=== PATIENT | female | born 1975 | race Caucasian/White ===

== ENCOUNTER 2018-07-13 01:06 | Emergency (ER) | payer OTHER ==
[2018-07-13 01:06] VITALS: BMI 27.3
--- NOTE | 2018-07-13 01:17 | ED PDOC ---
Arrival/HPI - General Time Seen by Provider: 07/13/18 01:09 Historian: Patient - History of Present Illness Narrative History of Present Illness (Text): 07/13/18 01:17 Vivian Rivera is a 43 year old female, whose past medical history includes depression, bipolar disorder, anemia, and hypothyroidism, who presents to the Emergency department brought in by EMS accompanied by relative for bizarre behavior. Relative states patient has been non-compliant with her medication and has been acting bizarrely. On arrival to Emergency department, patient became agitated and was placed in 4 point restraints. When questioned, patient is rambling, stating she is the [place] Nohemy and nobody believes her. Patient denies any somatic complaints. Symptom Onset: Gradual Symptom Course: Unchanged Activities at Onset: Light Context: Home Past Medical History - Provider Review Nursing Documentation Reviewed: Yes - Infectious Disease Hx of Infectious Diseases: None - Reproductive Currently : No - Cardiac Hx Cardiac Disorders: No - Pulmonary Hx Respiratory Disorders: No - Neurological Hx Neurological Disorder: No - HEENT Hx HEENT Disorder: No Other/Comment: USES NEARSIGHTED EYEGLASSES - Renal Hx Renal Disorder: No - Endocrine/Metabolic Hx Hypothyroidism: Yes - Hematological/Oncological Hx Anemia: Yes - Integumentary Hx Dermatological Disorder: No - Musculoskeletal/Rheumatological Hx Musculoskeletal Disorders: No Hx Falls: No - Gastrointestinal Hx Gastrointestinal Disorders: No - Genitourinary/Gynecological Hx Genitourinary Disorders: No - Psychiatric Hx Substance Use: No - Surgical History Hx Hysterectomy: Yes Hx Thyroidectomy: Yes Hx Tubal Ligation: Yes (1996) - Anesthesia Hx Anesthesia: Yes Hx Anesthesia Reactions: No Hx Malignant Hyperthermia: No - Suicidal Assessment Feels Threatened In Home Enviroment: No Family/Social History - Physician Review Nursing Documentation Reviewed: Yes Family/Social History: Unknown Family HX Smoking Status: Never Smoked Hx Alcohol Use: No Hx Substance Use: No Allergies/Home Meds Allergies/Adverse Reactions: Allergies No Known Allergies Allergy (Verified 02/07/17 18:34) Home Medications: Home Meds Medication Instructions Recorded Confirmed Aripiprazole [Abilify] 10 mg PO DAILY 12/05/14 07/13/18 Review of Systems - Physician Review All systems were reviewed & negative as marked: Yes - Review of Systems Constitutional: Normal. absent: Fevers Eyes: Normal ENT: Normal Respiratory: Normal. absent: SOB, Cough Cardiovascular: Normal. absent: Chest Pain Gastrointestinal: Normal. absent: Abdominal Pain, Diarrhea, Nausea, Vomiting Genitourinary Female: Normal. absent: Dysuria, Frequency, Hematuria, Urine Output Changes Musculoskeletal: Normal. absent: Back Pain, Neck Pain Skin: Normal. absent: Rash Neurological: Normal. absent: Headache, Dizziness Endocrine: Normal Hemo/Lymphatic: Normal Psychiatric: Other (+bizarre behavior) Physical Exam Vital Signs Reviewed: Yes Temperature: Afebrile Blood Pressure: Normal Pulse: Regular Respiratory Rate: Normal Appearance: Positive for: Well-Appearing, Non-Toxic, Comfortable Pain Distress: None Mental Status: Positive for: Alert and Oriented X 3 - Systems Exam Head: Present: Atraumatic, Normocephalic Pupils: Present: PERRL Extroacular Muscles: Present: EOMI Conjunctiva: Present: Normal Mouth: Present: Moist Mucous Membranes Neck: Present: Normal Range of Motion Respiratory/Chest: Present: Clear to Auscultation, Good Air Exchange. No: Respiratory Distress, Accessory Muscle Use Cardiovascular: Present: Regular Rate and Rhythm, Normal S1, S2. No: Murmurs Abdomen: No: Tenderness, Distention, Peritoneal Signs Back: Present: Normal Inspection Upper Extremity: Present: Normal Inspection. No: Cyanosis, Edema Lower Extremity: Present: Normal Inspection. No: Edema Neurological: Present: GCS=15, CN II-XII Intact, Speech Normal Skin: Present: Warm, Dry, Normal Color. No: Rashes Psychiatric: Present: Alert, Oriented x 3, Delusional Medical Decision Making ED Course and Treatment: 07/13/18 01:17 Impression: 43 year old female brought in for bizarre behavior. Plan: -- EKG -- Chest X-ray -- Labs, alcohol level -- Urinalysis, urine drug screen -- Reassess and disposition Prior Visits: Notes and results from previous visits were reviewed. Progress Notes: Reviewed EKG, sinus tachycardia at [address] bpm[address] Non-specific ST/T wave changes. - EKG Interpretation Interpreted by ED Physician: Yes Type: 12 lead EKG - Transfer of Care Patient signed out to Dr:: cecilio muñoz awaiting lisa screeners - Scribe Statement The provider has reviewed the documentation as recorded by the Santosh Fairchild Provider Scribe Attestation: All medical record entries made by the Scribe were at my direction and personally dictated by me. I have reviewed the chart and agree that the record accurately reflects my personal performance of the history, physical exam, medical decision making, and the department course for this patient. I have also personally directed, reviewed, and agree with the discharge instructions and disposition. Disposition/Present on Arrival - Present on Arrival Any Indicators Present on Arrival: No History of DVT/PE: No History of Uncontrolled Diabetes: No Urinary Catheter: No History Surgical Site Infection Following: None - Disposition Have Diagnosis and Disposition been Completed?: Yes Diagnosis: Bipolar 1 disorder Disposition Time: 07:00 Condition: GOOD Additional Instructions: chest xray neg patient is medically stable for transfer and psychiatric admission Referrals: Jonathan Bryant MD [Primary Care Provider] - Follow up with primary Forms: [employer] (Greenlandic)
[2018-07-13 02:16] LABS: BASO # 0.06 K/mm3 (0.0-2.0); BASO % 0.7 % (0.0-3.0); HEMOGLOBIN 11.7 g/dL (12.0-16.0); LYMPH # 1.9 (1.2-3.4); LYMPH % 22.3 % (22.0-35.0); MEAN CELL VOLUME 71.7 fl (80.0-105.0); MEAN CORPUSCULAR HEMOGLOBIN 22.7 pg (25.0-35.0); MEAN CORPUSCULAR HGB CONC 31.7 g/dl (31.0-37.0); MEAN PLATELET VOLUME 9.6 fl (7.0-11.0); MONO # 0.8 (0.1-0.6); MONO % 9.1 % (1.0-6.0); RBC 5.15 10^6/uL (3.5-6.1); RED CELL DISTRIBUTION WIDTH 15.3 % (11.5-14.5); WHITE BLOOD COUNT 8.7 10^3/uL (4.5-11.0)
[2018-07-13 02:20] LABS: ACETAMINOPHEN < 10.0 ug/ml (10.0-20.0); ALB/GLOB RATIO 1.4 (1.1-1.8); ALBUMIN 4.6 g/dL (3.0-4.8); ALT/SGPT 22 U/L (7-56); AST/SGOT 27 U/L (14-36); BLOOD UREA NITROGEN 23 mg/dL (7-21); CALCIUM 9.4 mg/dL (8.4-10.5); GFR NON-AFRICAN AMERICAN > 60; SALICYLATE < 1 mg/dL (2.0-20.0)
[2018-07-13 03:16] LABS: URINE BILIRUBIN NEGATIVE (NEGATIVE); URINE BLOOD LARGE (NEGATIVE); URINE GLUCOSE (UA) NEGATIVE (NEGATIVE); URINE LEUKOCYTE ESTERASE NEGATIVE Leu/uL (NEGATIVE); URINE PROTEIN 30 mg/dL (<30 mg/dL); URINE UROBILINOGEN 0.2 E.U./dL (<1 E.U./dL)
[2018-07-13 03:23] LABS: HCG,QUALITATIVE URINE NEGATIVE (NEGATIVE); URINE APPEARANCE SL CLOUDY (CLEAR); URINE COLOR YELLOW (YELLOW)
[2018-07-13 03:35] LABS: URINE BACTERIA MANY /hpf; URINE WBC 0 - 2 /hpf (0-6)
[2018-07-13] MEDS ORDERED: Potassium Chloride 20 mEq ER Tab PO STA (03:35)
[2018-07-13 04:36] LABS: BARBITURATES, UR NEGATIVE (NEGATIVE); BENZODIAZEPINES, UR NEGATIVE (NEGATIVE); OPIATES, UR NEGATIVE (NEGATIVE); PHENCYCLIDINE, UR NEGATIVE (NEGATIVE)
[2018-07-13 06:52] VITALS: RESP 18
--- NOTE | 2018-07-13 07:37 | ED PDOC ---
Physical Exam Vital Signs Temp Pulse Resp BP Pulse Ox 07/13/18 06:51 69 18 140/86 97 07/13/18 03:19 110 H 22 132/69 99 07/13/18 01:17 98.7 F 120 H 24 135/99 H 100 Medical Decision Making ED Course and Treatment: 07/13/18 07:05 Case endorsed to me by Dr. Roland for pending [facility] screening. Patient is a 43 year old female who presented to the ED earlier today for evaluation of erratic behavior prior to arrival. Patient has been medically cleared by previous team and has been evaluated by [facility]. Patient is awaiting [facility] screening for bipolar disorder. Patient is currently resting in bed in no acute distress and neurologically intact. Patient currently denies any new medical complaints. 07/13/18 10:55 CXR reviewed by radiologist, shows no active disease. 07/13/18 11:58 accepted by [facility] - Lab Interpretations Lab Results: Total Bilirubin 0.9 mg/dL (0.2-1.3) 07/13/18 01:45 AST 27 U/L (14-36) 07/13/18 01:45 ALT 22 U/L (7-56) 07/13/18 01:45 Alkaline Phosphatase 78 U/L (38-126) 07/13/18 01:45 Total Protein 8.0 g/dL (5.8-8.3) 07/13/18 01:45 Albumin 4.6 g/dL (3.0-4.8) 07/13/18 01:45 Globulin 3.4 gm/dL 07/13/18 01:45 Albumin/Globulin Ratio 1.4 (1.1-1.8) 07/13/18 01:45 Urine Color Yellow (YELLOW) 07/13/18 03:00 Urine Appearance Sl cloudy (CLEAR) 07/13/18 03:00 Urine pH 6.0 (4.7-8.0) 07/13/18 03:00 Ur Specific [place] >= 1.030 (1.005-1.035) 07/13/18 03:00 Urine Protein 30 mg/dL (<30 mg/dL) H 07/13/18 03:00 Urine Glucose (UA) Negative mg/dL (NEGATIVE) 07/13/18 03:00 Urine Ketones Negative mg/dL (NEGATIVE) 07/13/18 03:00 Urine Blood Large (NEGATIVE) H 07/13/18 03:00 Urine Nitrate Positive (NEGATIVE) H 07/13/18 03:00 Urine Bilirubin Negative (NEGATIVE) 07/13/18 03:00 Urine Urobilinogen 0.2 E.U./dL (<1 E.U./dL) 07/13/18 03:00 Ur Leukocyte Esterase Negative [place]/uL (NEGATIVE) 07/13/18 03:00 Urine RBC 1 - 3 /hpf (0-2) H 07/13/18 03:00 Urine WBC 0 - 2 /hpf (0-6) 07/13/18 03:00 Ur Epithelial Cells 1 - 3 /hpf (0-5) 07/13/18 03:00 Urine Bacteria Many /hpf (NONE) 07/13/18 03:00 Urine HCG, Qual Negative (NEGATIVE) 07/13/18 03:00 Urine HCG, Qual Negative (NEGATIVE) 07/13/18 03:00 - RAD Interpretation Radiology Orders: 07/13/18 03:35 CHEST PORTABLE [RAD] Stat - Medication Orders Current Medication Orders: Discontinued Medications Cephalexin Monohydrate (Keflex) 500 mg PO STAT STA; Protocol Stop: 07/13/18 03:32 Last Admin: 07/13/18 03:46 Dose: 500 mg Lorazepam (Ativan) 2 mg IM ONCE ONE; Protocol Stop: 07/13/18 05:03 Last Admin: 07/13/18 04:26 Dose: 2 mg IM Administration Charges Document 07/13/18 04:26 CNR (Rec: 07/13/18 05:06 CNR [id number]) Injection Site MAR Injection Site Left Deltoid Charges for Administration # of IM Administrations 1 Potassium Chloride (K-Dur 20 Meq Er Tab) 20 meq PO STAT STA Stop: 07/13/18 03:36 Last Admin: 07/13/18 03:46 Dose: 20 meq - Scribe Statement The provider has reviewed the documentation as recorded by the Santsoh Antoine. All medical record entries made by the Marielenaibraj were at my direction and personally dictated by me. I have reviewed the chart and agree that the record accurately reflects my personal performance of the history, physical exam, medical decision making, and the department course for this patient. I have also personally directed, reviewed, and agree with the discharge instructions and disposition. Disposition/Present on Arrival - Present on Arrival Any Indicators Present on Arrival: No History of DVT/PE: No History of Uncontrolled Diabetes: No Urinary Catheter: No History of Decub. Ulcer: No History Surgical Site Infection Following: None - Disposition Diagnosis: Bipolar 1 disorder Patient Problems: Current Active Problems Problem Status Onset Bipolar 1 disorder Acute Condition: GOOD Additional Instructions: chest xray no acute disease, no infiltrate no cardiomegaly Referrals: Jonathan Bryant MD [Primary Care Provider] - Follow up with primary Forms: [employer] (Azerbaijani)
[2018-07-13 10:01] VITALS: O2SAT 99
--- NOTE | 2018-07-13 10:23 | CARD ---
APPROVED REPORT Date of service: 07/13/2018 EKG Measurement Heart [id number] MD [id number] <Conclusion> Sinus tachycardia Possible Left atrial enlargement Borderline ECG
--- NOTE | 2018-07-13 10:23 | RAD ---
Date of service: 07/13/2018 HISTORY: pes COMPARISON: No prior. FINDINGS: LUNGS: No active pulmonary disease. PLEURA: No significant pleural effusion identified, no pneumothorax apparent. CARDIOVASCULAR: No aortic atherosclerotic calcification present. Normal cardiac size. No pulmonary vascular congestion. OSSEOUS STRUCTURES: No significant abnormalities. VISUALIZED UPPER ABDOMEN: Normal. OTHER FINDINGS: None. IMPRESSION: No active disease.
[2018-07-13] MEDS ORDERED: OLANZapine 5 mg Disintegrating Tab PO PRN (17:31)
[2018-07-13 17:33] VITALS: BP 127/80; PULSE 90; TEMP 98.5
--- NOTE | 2018-07-13 21:37 | CON ---
DATE OF CONSULTATION: 07/13/2018 HISTORY OF PRESENT ILLNESS: In short, the patient is a 43-year-old female with reported history of schizoaffective disorder, bipolar type, versus bipolar disorder with psychosis. The patient was brought to the emergency room for evaluation of bizarre behavior. In the emergency room, the patient presented to be disorganized, agitated and psychotic. The patient believes that she is [place] Nohemy and nobody believes her. The patient was agitated. The patient was placed in four-point restraint. Psych consultation was called for evaluation of possible medication management. The patient was seen and examined today at the morning time. The patient presented to be bizarre, delusional and guarded. Dr. Garcia initiated [facility] evaluation and later on the patient was screened and accepted for involuntary commitment. VITAL SIGNS: Reviewed. Pulse is 88, blood pressure 129/78, respirations 18, oxygen saturation is 99. MEDICATIONS: Reviewed. The patient got Keflex. The patient got Ativan 2 mg IM as well as K-Dur. LABORATORY DATA: Reviewed. Chemistry reviewed. Urinalysis was positive for nitrites and urinary tract infection. Toxicology was negative for any substances. This specifications writer reviewed the previous history. The patient has admissions to [facility] in 02/2017. The patient was diagnosed with bipolar disorder. The patient was on Abilify 10 mg daily. The patient was on Lexapro, Lamictal as well as ReVia and medication for her urinary tract infection. As per emergency room report, the patient was noncompliant with the medications prior to coming to the hospital. MENTAL STATUS EXAM: The patient appears to be guarded, paranoid, not forthcoming with information. Affect was constricted. Thought process disorganized. The patient paranoid and guarded. The patient denied thoughts of harming herself or others. Insight and judgment seems to be very limited. Impulses are unpredictable. The patient believes that she is [place] Nohemy, but nobody believes her. IMPRESSION: Rule out bipolar disorder with psychosis versus schizoaffective disorder. PLAN: At present moment, the patient will stay in the emergency room until bed will be available at [facility]. This specifications writer will start as-needed medications. The patient might benefit from further evaluation and stabilization and medication adjustment. Thank you very much for letting me participate in the care of your patient. Should you have any questions, give me a call back. Niru Amato MD
== END 2018-07-13 17:36 | disposition short-term general hospital (02) ==
LOC: ED 01:06
DX: F31.9 Bipolar disorder, unspecified (principal)
CPT/HCPCS: 71045; 80053; 81001; 81025; 83735; 84703; 85025; 87086; 87181; 90791; 93005; 96372; 99285; G0480; J2060